=== PATIENT | male | born 1985 | race African-American/Black ===

== ENCOUNTER 2016-10-21 07:19 | Day surgery (SDC) | payer BC, OTHER ==
[~2016-10-21 07:19] MED LIST: Lactated Ringers 1,000 ML IV SCH
[2016-10-21] MEDS ORDERED: Midazolam 1 MG/ML 2 ML SDV IV ONE (08:30)
[2016-10-21] MEDS ORDERED: Propofol 200 MG/20 ML SDV IV ONE (08:30)
--- NOTE | 2016-10-21 08:55 | PCM.OPNOTE ---
- General Post-Op/Procedure Note Date of Surgery/Procedure: 10/21/16 Operative Procedure(s): c scope Findings: internal hemorrhoids Pre Op Diagnosis: bleeding per rectum Post-Op Diagnosis: internal hemorrhoids Anesthesia Technique: ROWENA Primary Surgeon: Mani Oconnor Anesthesia Provider: Linda Cronin Pathology: none Complications: None Condition: Good Free Text/Narrative:: see dictation
--- NOTE | 2016-10-21 10:18 | OR ---
DATE OF OPERATION: 10/21/2016 SURGEON: Mani Oconnor MD PROCEDURE PERFORMED: Colonoscopy. PREOPERATIVE DIAGNOSIS: Bleeding per rectum. POSTOPERATIVE DIAGNOSIS: Internal hemorrhoids. INDICATIONS FOR PROCEDURE: This is a 31-year-old male who is referred with a history of bright red blood per rectum. He was offered and accepted colonoscopy. DESCRIPTION OF OPERATION: After an excellent IV sedation was administered, digital rectal exam was performed. No marked abnormality was noted. The flexible colonoscope was inserted and advanced to the cecum without difficulty. The prep was excellent. The following findings were noted. Ascending colon, unremarkable. Transverse colon, unremarkable. Descending colon, unremarkable. Sigmoid and rectum, unremarkable. On retroflexing the scope, there was evidence of internal hemorrhoids, which appears to be the cause of his bleeding. The colon was deflated, scope was removed. The patient tolerated the procedure well, and was taken to recovery room in good condition. /[id number] /[id number]
[2016-10-21 12:03] VITALS: BP 110/67
== END 2016-10-21 09:30 | disposition home or self-care (01) ==
LOC: FB.SDS 07:19
PROVIDERS: ATTEND Surgery
DX: K64.8 Other hemorrhoids (principal); F32.9 Major depressive disorder, single episode, unspecified; Z79.899 Other long term (current) drug therapy; Z87.891 Personal history of nicotine dependence
CPT/HCPCS: 45378; J2250; J2704; J7120

== ENCOUNTER 2019-03-20 14:31 | Emergency (ER) | payer OTHER ==
--- NOTE | 2019-03-20 14:57 | EDM.PDOC ---
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 He states it was worse when he took a deep breath. He continued to feel short of breath and also felt nausea and lightheadedness. He was also sweating at the time. He apparently had been drinking liquids well prior to this. He was wearing heavy vest and took that vest off but it did not seem to help his breathing or the pain. He reports that the pain which he rated as a 4/10 lasted for 10 or 15 minutes. EMS arrived and noted that he had a pulse rate in the 140s and was wheezing and his O2 saturations were 88-89% on room air. They placed him on an albuterol nebulizer treatment which the patient felt seem to help his breathing somewhat. On the way in here to the emergency department via ambulance, his O2 saturations remained in the 99-100% range and his pulse rate came down into the 100 range. His nausea has resolved but he still ill feels shaky all over and actually has intermittent shakes all over his body. The pain in his chest is basically gone to a 0/10 unless he takes a deep breath and then as a 2/10. He still feels somewhat short of breath and wheezy with a cough. He states he felt completely well and normal prior to all this occurring. He states he's never had this happen before. No arm pain, neck pain or jaw pain. No back pain. There are no other associated signs or symptoms. There are no other modifying factors. Onset: Today (1:15 PM) Duration: Improving Location: Reports: Chest Quality: Reports: Pressure (Squeezing), Sharp (Some sharp component) Severity: Moderate Improves with: Reports: Rest Worsens with: Reports: Breathing Context: Reports: Activity (As above) Treatments SNOW REMOVAL/PLOWING: Reports: Breathing Treatments (By EMS on the way and he received an albuterol nebulizer treatment.) - Related Data Allergies Allergy/AdvReac Type Severity Reaction Status Date / Time No Known Allergies Allergy Verified 10/20/16 13:11 Home Meds: Home Meds NK [No Known Home Meds] 10/21/16 [History] Past Medical History HEENT History: Reports: Impaired Vision Respiratory History: Reports: SOB Gastrointestinal History: Reports: Hemorrhoids (Internal hemorrhoids) Musculoskeletal History: Reports: Back Pain, Chronic Psychiatric History: Reports: Depression, Other (See Below) Other Psychiatric History: SLEEP DISORDER Endocrine/Metabolic History: Reports: Obesity/BMI 30+ Dermatologic History: Reports: Psoriasis - Infectious Disease History Infectious Disease History: Reports: Chicken Pox, Shingles - Past Surgical History GI Surgical History: Reports: Colonoscopy Social & Family History - Family History Cardiac: Reports: CAD, [place] (Mother with IL at age 40.), Stent (Mother has had angioplasty with stent placed.) Endocrine/Metabolic: Reports: Diabetes, type II (Mother developed diabetes mellitus after her IL.) - Tobacco Use Tobacco Use Within Last Twelve Months: Snuff/Dip (1 can per day.) - Alcohol Use Alcohol Use History: No - Living Situation & Occupation 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 Denies: Vomiting : Reports: No Symptoms Musculoskeletal: Reports: No Symptoms Skin: Reports: No Symptoms Neurological: Reports: No Symptoms Hematologic/Lymphatic: Reports: No Symptoms Immunologic: Reports: No Symptoms ED EXAM, GENERAL - Physical Exam Exam: See Below Exam Limited By: No Limitations General Appearance: Alert, WD/WN, Mild Distress Eye Exam: Bilateral Eye: EOMI, Normal Inspection, PERRL Ears: Normal External Exam, Hearing Grossly Normal Ear Exam: Bilateral Ear: Auricle Normal Nose: Normal Inspection, Normal Mucosa, No Blood Throat/Mouth: Normal Inspection, Normal Lips, Normal Teeth, Normal Oropharynx, Normal Voice, No Airway Compromise Head: Atraumatic, Normocephalic Neck: Normal Inspection, Supple, Non-Tender, Full Range of Motion Respiratory/Chest: No Respiratory Distress, No Accessory Muscle Use, Chest Non- Tender, Wheezing (Bilaterally with decreased air movement bilaterally) Cardiovascular: Normal Peripheral Pulses, Regular Rate, Rhythm, No JVD Peripheral Pulses: 2+: Radial (L), Radial (R) GI/Abdominal: Normal Bowel Sounds, Soft, Non-Tender, No Mass Back Exam: Normal Inspection, Full Range of Motion Extremities: Normal Inspection, Normal Range of Motion, Non-Tender, No Pedal Edema, Normal Capillary Refill Neurological: Alert, Oriented, CN II-XII Intact, Normal Cognition, No Motor/ Sensory Deficits Skin Exam: Warm, Dry, Intact, Normal Color, No Rash EKG INTERPRETATION EKG Date: 03/20/19 Time: 14:46 Rhythm: NSR Rate (Beats/Min): 86 [place]: LAD-Left [place] Deviation P-Wave: Present QRS: Other (Inferior Q's and III and aVF and somewhat poor R-wave progression.) ST-T: Other (Nonspecific ST-T changes) QT: Normal Comparison: NA - No Prior EKG Course - Vital Signs Last Recorded V/S: Last Vital Signs Temp 36.0 C 03/20/19 14:31 Pulse 91 03/20/19 14:31 Resp 18 03/20/19 14:31 BP 125/100 H 03/20/19 14:31 Pulse Ox 96 03/20/19 14:31 - Orders/Labs/Meds Orders: Active Orders 24 hr Category Date Time Status EKG Documentation Completion [RC] ASDIRECTED Care 03/20/19 15:18 Active RT Aerosol Therapy [RC] ASDIRECTED Care 03/20/19 15:19 Active Chest 1V Frontal [CR] Stat Exams 03/20/19 15:17 Taken EKG 12 Lead [EK] Routine Ther 03/20/19 15:17 Ordered Labs: Laboratory Tests 03/20/19 03/20/19 03/20/19 Range/Units 15:10 15:10 15:10 WBC 11.3 (4.5-12.0) X10-3/uL RBC 5.27 (4.30-5.75) x10(6)uL Hgb 14.4 (13.5-17.8) g/dL Hct 42.7 (30.0-51.3) % MCV 80.9 (80-96) fL MCH 27.3 L (27.7-33.6) pg MCHC 33.8 (32.2-35.4) g/dL RDW 14.0 (11.5-15.5) % Plt Count 279 (125-369) X10(3)uL MPV 7.6 (7.4-10.4) fL Neut % (Auto) 82.0 (46-82) % Lymph % (Auto) 12.8 L (13-37) % [place] % (Auto) 4.8 (4-12) % Eos % (Auto) 0 L (1.0-5.0) % Baso % (Auto) 0 (0-2) % Neut # (Auto) 9.3 H (1.6-8.3) # Lymph # (Auto) 1.5 (0.6-5.0) # [place] # (Auto) 0.5 (0.0-1.3) # Eos # (Auto) 0.0 (0.0-0.8) # Baso # (Auto) 0.0 (0.0-0.2) # D-Dimer, Quantitative 0.34 (0.0-0.59) mg/LFEU Sodium 140 (135-145) mmol/L Potassium 3.8 (3.5-5.3) mmol/L Chloride 104 (100-110) mmol/L Carbon Dioxide 25 (21-32) mmol/L BUN 17 (7-18) mg/dL Creatinine 1.2 (0.70-1.30) mg/dL Est Cr Clr Drug Dosing TNP Estimated GFR (MDRD) > 60 (>60) BUN/Creatinine Ratio 14.2 (9-20) Glucose 79 L (80-116) mg/dL Calcium 9.4 (8.6-10.2) mg/dL Total Bilirubin 0.4 (0.1-1.3) mg/dL AST 18 (5-25) IU/L ALT 47 H (12-36) U/L Alkaline Phosphatase 87 (56-112) IU/L Troponin I (<0.017-0.056) ng/mL NT-Pro-B Natriuret Pep (<=125) pg/mL Total Protein 7.5 (6.0-8.0) g/dL Albumin 4.1 (3.5-5.2) g/dL Globulin 3.4 g/dL Albumin/Globulin Ratio 1.2 03/20/19 Range/Units 15:10 WBC (4.5-12.0) X10-3/uL RBC (4.30-5.75) x10(6)uL Hgb (13.5-17.8) g/dL Hct (30.0-51.3) % MCV (80-96) fL MCH (27.7-33.6) pg MCHC (32.2-35.4) g/dL RDW (11.5-15.5) % Plt Count (125-369) X10(3)uL MPV (7.4-10.4) fL Neut % (Auto) (46-82) % Lymph % (Auto) (13-37) % [place] % (Auto) (4-12) % Eos % (Auto) (1.0-5.0) % Baso % (Auto) (0-2) % Neut # (Auto) (1.6-8.3) # Lymph # (Auto) (0.6-5.0) # [place] # (Auto) (0.0-1.3) # Eos # (Auto) (0.0-0.8) # Baso # (Auto) (0.0-0.2) # D-Dimer, Quantitative (0.0-0.59) mg/LFEU Sodium (135-145) mmol/L Potassium (3.5-5.3) mmol/L Chloride (100-110) mmol/L Carbon Dioxide (21-32) mmol/L BUN (7-18) mg/dL Creatinine (0.70-1.30) mg/dL Est Cr Clr Drug Dosing Estimated GFR (MDRD) (>60) BUN/Creatinine Ratio (9-20) Glucose (80-116) mg/dL Calcium (8.6-10.2) mg/dL Total Bilirubin (0.1-1.3) mg/dL AST (5-25) IU/L ALT (12-36) U/L Alkaline Phosphatase (56-112) IU/L Troponin I < 0.017 L (<0.017-0.056) ng/mL NT-Pro-B Natriuret Pep 66 (<=125) pg/mL Total Protein (6.0-8.0) g/dL Albumin (3.5-5.2) g/dL Globulin g/dL Albumin/Globulin Ratio Meds: Medications Discontinued Medications Generic Name Dose Route Start Last Admin Trade Name Suraj PRN Reason Stop Dose Admin Albuterol/Ipratropium 3 ml 03/20/19 15:18 03/20/19 15:28 Duoneb 3.0-0.5 Mg/3 Ml NEB 03/20/19 15:19 3 ml ONETIME ONE Administration Aspirin 243 mg 03/20/19 15:18 03/20/19 15:27 Aspirin PO 03/20/19 15:19 243 mg ONETIME ONE Administration - Radiology Interpretation Free Text/Narrative:: Portable chest x-ray shows no acute disease. - Re-Assessments/Exams Free Text/Narrative Re-Assessment/Exam: 03/20/19 16:15: After the nebulizer treatment the patient feels improved and his O2 saturations are maintaining at 100% on room air. He still has some wheezing but he is moving air better. He is pain-free at this point. He still felt somewhat shaky. His initial troponin was negative. His d-dimer was negative. His chest x-ray showed no acute disease. His EKG is nonspecific but it is not normal. I am concerned that this could represent acute coronary syndrome. I called and discussed the patient's case with Dr. Weaver, hospitalist at [facility], and he feels that the patient should be admitted but he feels the patient should be at a facility with cardiology specially services as he may need either cardiac catheterization or a nuclear medicine stress test given the patient's strong family history of heart disease and the patient's history and presentation from today's episode. He feels the patient should be transferred to [facility] in [place] for admission. I discussed this with the patient and the patient would be in agreement with the plan for transfer into [facility] in [place]. 03/20/19 16:30: Attempted to call [facility] but awaiting problem with on system. The patient remains hemodynamically stable and chest pain-free with normal rhythm on the panel monitor. 03/20/19 16:50: Attempted to call [facility] but they were busy and had to attend other patients. The patient remains hemodynamically stable as pain-free. 03/20/19 17:25: Was able to talk to [facility] nurse and they will call me back when they have the hospitalist. 03/20/19 17:45: I discussed the patient's case with Dr. Uribe, hospitalist at [facility] in [place], she has agreed to accept the patient in transfer. The patient will be sent via once to [facility] in [place] for direct admission. The patient remains chest pain-free and hemodynamically stable. Departure - Departure Time of Disposition: 17:50 Disposition: DC/Tfer to [facility] 02 Condition: Fair (Stable) Clinical Impression: Respiratory distress, Wheezing, Chest pain, rule out acute myocardial infarction Chest pain Qualifiers: Chest pain type: unspecified Qualified Code(s): R07.9 - Chest pain, unspecified - Discharge Information Referrals: Jenn Garrett, SCR[employer] WORKER [Primary Care Provider] - - My Orders Last 24 Hours: My Active Orders 03/20/19 15:17 Chest 1V Frontal [CR] Stat EKG 12 Lead [EK] Routine 03/20/19 15:18 EKG Documentation Completion [RC] ASDIRECTED 03/20/19 15:19 RT Aerosol Therapy [RC] ASDIRECTED - Assessment/Plan Last 24 Hours: My Active Orders 03/20/19 15:17 Chest 1V Frontal [CR] Stat EKG 12 Lead [EK] Routine 03/20/19 15:18 EKG Documentation Completion [RC] ASDIRECTED 03/20/19 15:19 RT Aerosol Therapy [RC] ASDIRECTED
[2019-03-20] MEDS ORDERED: Albuterol/Ipratropium 3.0-0.5 MG/3 ML Neb Soln NEB ONE (15:18)
[2019-03-20] MEDS ORDERED: Aspirin 81 MG Tab.Chew PO ONE (15:18)
[2019-03-20] MEDS ORDERED: Sodium Chloride 0.9% 1,000 ML IV SCH (18:15)
[2019-03-20 19:31] VITALS: BP 112/71
--- NOTE | 2019-03-22 09:26 | CR ---
INDICATION: Difficulty breathing, chest pain. CHEST: A single AP upright portable view of the chest revealed an appearance suggesting exogenous obesity. Heart, mediastinum, and bony thorax were unremarkable, except to note a very minimal dextroconvex scoliosis of the mid thoracic spine. Overlying EKG leads are noted. An active infiltrate or effusion was not identified. No free air was noted under the hemidiaphragm leaves. IMPRESSION: No acute process. MTDD
== END 2019-03-20 19:06 ==
LOC: FB.ED 14:31
DX: R07.9 Chest pain, unspecified (principal); R06.2 Wheezing; R06.03 Acute respiratory distress; E66.9 Obesity, unspecified; F17.299 Nicotine dependence, other tobacco product, with unspecified nicotine-induced disorders; Z68.33 Body mass index [BMI] 33.0-33.9, adult
CPT/HCPCS: 36415; 71045; 80053; 83880; 84484; 85025; 85379; 93005; 94640; 96360; 99285-25; A9270-GY; J7030; J7620-GY

== ENCOUNTER 2020-05-13 00:42 | Emergency (ER) | payer OTHER ==
[2020-05-13] MEDS ORDERED: Sodium Chloride 0.9% 10 ML Syringe FLUSH PRN (01:05)
[2020-05-13] MEDS ORDERED: Aspirin 81 MG Tab.Chew PO ONE (01:05)
[2020-05-13] MEDS ORDERED: Metoprolol Succinate 25 MG Tab.ER PO ONE (01:13)
--- NOTE | 2020-05-13 01:21 | EDM.PDOC ---
ED HPI GENERAL MEDICAL PROBLEM - General Chief Complaint: Cardiovascular Problem Stated Complaint: CHEST PAIN Time Seen by Provider: 05/13/20 01:14 Source of Information: Reports: Patient History Limitations: Reports: No Limitations - History of Present Illness INITIAL COMMENTS - FREE TEXT/NARRATIVE: Presents with intermittent substernal chest pain since yesterday morning @0900. The discomfort resolved, but then recurred this evening @2000 while watching TV. Episodes of pain lasts @1 second. Symptoms persist in the ED. Denies SOB. No prior h/o CAD. PMHx includes Asthma, Anxiety and HFrEF (EF 45% in 2019). Denies h/o CAD. FMHx: Mother had MA @42 yo. Patient drinks 3-4 caffeinated sodas per day. Onset Date: 05/12/20 Onset Time: 09:00 Location: Reports: Chest Quality: Reports: Dull Severity: Mild mid chest Pain Score (Numeric/FACES): 2 - Related Data Allergies Allergy/AdvReac Type Severity Reaction Status Date / Time No Known Allergies Allergy Verified 10/20/16 13:11 Home Meds: Home Meds Metoprolol Succinate [Toprol XL] 25 mg PO DAILY #30 tab.er 05/13/20 [Rx] Past Medical History HEENT History: Reports: Impaired Vision Cardiovascular History: Reports: Heart Failure. Denies: CAD, [place] Respiratory History: Reports: Asthma Gastrointestinal History: Reports: Hemorrhoids (Internal hemorrhoids) Other Gastrointestinal History: RECTAL BLEEDING; HX ABDOMINAL PAIN Genitourinary History: Reports: None YOUTH OFFICER History: Reports: None Musculoskeletal History: Reports: Back Pain, Chronic Neurological History: Reports: None Psychiatric History: Reports: Anxiety, Depression, Other (See Below) Other Psychiatric History: SLEEP DISORDER Endocrine/Metabolic History: Reports: Obesity/BMI 30+ Hematologic History: Reports: None Immunologic History: Reports: None Oncologic (Cancer) History: Reports: None Dermatologic History: Reports: Psoriasis - Infectious Disease History Infectious Disease History: Reports: Chicken Pox, Shingles - Past Surgical History GI Surgical History: Reports: Colonoscopy Social & Family History - Family History Cardiac: Reports: CAD, [place] (Mother with MA at age 40.), Stent (Mother has had angioplasty with stent placed.) Endocrine/Metabolic: Reports: Diabetes, type II (Mother developed diabetes mellitus after her MA.) - Tobacco Use Tobacco Use Within Last Twelve Months: Snuff/Dip - Caffeine Use Caffeine Use: Reports: Soda - Alcohol Use Alcohol Use History: Yes Alcohol Use Frequency: Rarely - Recreational Drug Use Recreational Drug Use: No - Living Situation & Occupation 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 ED EXAM, GENERAL - Physical Exam Exam: See Below Exam Limited By: No Limitations General Appearance: Alert, WD/WN, No Apparent Distress Nose: Normal Inspection Throat/Mouth: No Airway Compromise Head: Atraumatic, Normocephalic Neck: Full Range of Motion Respiratory/Chest: No Respiratory Distress, Lungs Clear, Normal Breath Sounds Cardiovascular: Regular Rate, Rhythm, No Murmur Extremities: Normal Inspection Neurological: Alert, Normal Cognition Psychiatric: Normal Affect, Normal Mood Skin Exam: Warm, Dry, Intact #1 Interpretation EKG Date: 05/13/20 Time: 00:50 Rhythm: NSR Rate (Beats/Min): 74 [place]: Normal P-Wave: Present QRS: Normal ST-T: Normal QT: Normal Comparison: No Change (03/20/19) Course - Vital Signs Last Recorded V/S: Last Vital Signs Temp 36.2 C 05/13/20 00:42 Pulse 75 05/13/20 01:28 Resp 20 05/13/20 00:42 BP 161/96 H 05/13/20 01:28 Pulse Ox 100 05/13/20 00:42 - Orders/Labs/Meds Orders: Active Orders 24 hr Category Date Time Status EKG Documentation Completion [RC] ASDIRECTED Care 05/13/20 01:07 Active CXR [Chest 1V Frontal] [CR] Stat Exams 05/13/20 01:04 Taken Sodium Chloride 0.9% [Saline Flush] Med 05/13/20 01:05 Active 10 ml FLUSH ASDIRECTED PRN Saline Lock Insert [OM.PC] Routine Oth 05/13/20 01:05 Ordered EKG 12 Lead [EK] Stat Ther 05/13/20 01:06 Ordered Medication Orders Sodium Chloride (Saline Flush) 10 ml FLUSH ASDIRECTED PRN PRN Reason: Keep Vein Open Last Admin: 05/13/20 01:33 Dose: 10 ml Documented by: DONNIE Labs: Laboratory Tests 05/13/20 05/13/20 05/13/20 Range/Units 01:20 01:20 01:20 WBC 6.7 (4.5-12.0) X10-3/uL RBC 5.27 (4.30-5.75) x10(6)uL Hgb 14.0 (13.5-17.8) g/dL Hct 42.3 (30.0-51.3) % MCV 80.4 (80-96) fL MCH 26.6 L (27.7-33.6) pg MCHC 33.2 (32.2-35.4) g/dL RDW 13.8 (11.5-15.5) % Plt Count 352 (125-369) X10(3)uL MPV 6.7 L (7.4-10.4) fL Neut % (Auto) 60.5 (46-82) % Lymph % (Auto) 29.8 (13-37) % [place] % (Auto) 7.6 (4-12) % Eos % (Auto) 2 (1.0-5.0) % Baso % (Auto) 1 (0-2) % Neut # (Auto) 4.1 (1.6-8.3) # Lymph # (Auto) 2.0 (0.6-5.0) # [place] # (Auto) 0.5 (0.0-1.3) # Eos # (Auto) 0.1 (0.0-0.8) # Baso # (Auto) 0.0 (0.0-0.2) # PT 10.3 (9.0-11.1) sec INR 0.95 L (1.00-1.24) APTT 25.8 (24.4-33.2) SECONDS Sodium 139 (135-145) mmol/L Potassium 3.6 (3.5-5.3) mmol/L Chloride 102 (100-110) mmol/L Carbon Dioxide 26 (21-32) mmol/L BUN 11 (7-18) mg/dL Creatinine 1.2 (0.70-1.30) mg/dL Est Cr Clr Drug Dosing 107.34 mL/min Estimated GFR (MDRD) > 60 (>60) BUN/Creatinine Ratio 9.2 (9-20) Glucose 112 (80-116) mg/dL Calcium 9.1 (8.6-10.2) mg/dL Magnesium (1.8-2.5) mg/dL Total Bilirubin 0.3 (0.1-1.3) mg/dL AST 30 H D (5-25) IU/L ALT 52 H D (12-36) U/L Alkaline Phosphatase 73 (56-112) IU/L Troponin I (4.0-60.3) pg/mL Total Protein 7.2 (6.0-8.0) g/dL Albumin 3.9 (3.5-5.2) g/dL Globulin 3.3 g/dL Albumin/Globulin Ratio 1.2 05/13/20 05/13/20 Range/Units 01:20 01:20 WBC (4.5-12.0) X10-3/uL RBC (4.30-5.75) x10(6)uL Hgb (13.5-17.8) g/dL Hct (30.0-51.3) % MCV (80-96) fL MCH (27.7-33.6) pg MCHC (32.2-35.4) g/dL RDW (11.5-15.5) % Plt Count (125-369) X10(3)uL MPV (7.4-10.4) fL Neut % (Auto) (46-82) % Lymph % (Auto) (13-37) % [place] % (Auto) (4-12) % Eos % (Auto) (1.0-5.0) % Baso % (Auto) (0-2) % Neut # (Auto) (1.6-8.3) # Lymph # (Auto) (0.6-5.0) # [place] # (Auto) (0.0-1.3) # Eos # (Auto) (0.0-0.8) # Baso # (Auto) (0.0-0.2) # PT (9.0-11.1) sec INR (1.00-1.24) APTT (24.4-33.2) SECONDS Sodium (135-145) mmol/L Potassium (3.5-5.3) mmol/L Chloride (100-110) mmol/L Carbon Dioxide (21-32) mmol/L BUN (7-18) mg/dL Creatinine (0.70-1.30) mg/dL Est Cr Clr Drug Dosing mL/min Estimated GFR (MDRD) (>60) BUN/Creatinine Ratio (9-20) Glucose (80-116) mg/dL Calcium (8.6-10.2) mg/dL Magnesium 2.1 (1.8-2.5) mg/dL Total Bilirubin (0.1-1.3) mg/dL AST (5-25) IU/L ALT (12-36) U/L Alkaline Phosphatase (56-112) IU/L Troponin I 5.3 (4.0-60.3) pg/mL Total Protein (6.0-8.0) g/dL Albumin (3.5-5.2) g/dL Globulin g/dL Albumin/Globulin Ratio Meds: Medications Generic Name Dose Route Start Last Admin Trade Name Freq PRN Reason Stop Dose Admin Sodium Chloride 10 ml 05/13/20 01:05 05/13/20 01:33 Saline Flush FLUSH 10 ml ASDIRECTED PRN Administration Keep Vein Open Discontinued Medications Generic Name Dose Route Start Last Admin Trade Name Freq PRN Reason Stop Dose Admin Aspirin 324 mg 05/13/20 01:05 05/13/20 01:00 Aspirin PO 05/13/20 01:06 243 mg ONETIME ONE Administration Metoprolol Succinate 25 mg 05/13/20 01:13 05/13/20 01:28 Toprol Xl PO 05/13/20 01:14 25 mg ONETIME ONE Administration - Radiology Interpretation Free Text/Narrative:: CXR: No acute process. (ED provider interpretation) - Re-Assessments/Exams Free Text/Narrative Re-Assessment/Exam: 05/13/20 01:31 Chest discomfort coincides with PVCs seen on the cardiac rehabilitation specialist. Departure - Departure Time of Disposition: 02:00 Disposition: Home, Self-Care 01 Condition: Good Clinical Impression: Frequent PVCs Prescriptions: Metoprolol Succinate [Toprol XL] 25 mg PO DAILY #30 tab.er Instructions: Premature Ventricular Contraction Referrals: Jenn Garrett NP [Primary Care Provider] - 3 Days Forms: ED Department Discharge Additional Instructions: Fill the prescription for Toprol at [facility] and take as directed. Stop the medication if your Asthma worsens. Decrease caffeine intake. Follow up with your Primary Physician in 2-3 days. Return to the ER if symptoms worsen. Sepsis Event Note (ED) - Evaluation Sepsis Screening Result: No Definite Risk - Focused Exam Vital Signs: Vital Signs Temp Pulse Pulse Resp BP BP Pulse Ox 05/13/20 01:28 75 161/96 H 05/13/20 00:42 36.2 C 77 20 167/97 H 100 - My Orders Last 24 Hours: My Active Orders 05/13/20 01:04 CXR [Chest 1V Frontal] [CR] Stat 05/13/20 01:05 Sodium Chloride 0.9% [Saline Flush] 10 ml FLUSH ASDIRECTED PRN Saline Lock Insert [OM.PC] Routine 05/13/20 01:06 EKG 12 Lead [EK] Stat 05/13/20 01:07 EKG Documentation Completion [RC] ASDIRECTED - Assessment/Plan Last 24 Hours: My Active Orders 05/13/20 01:04 CXR [Chest 1V Frontal] [CR] Stat 05/13/20 01:05 Sodium Chloride 0.9% [Saline Flush] 10 ml FLUSH ASDIRECTED PRN Saline Lock Insert [OM.PC] Routine 05/13/20 01:06 EKG 12 Lead [EK] Stat 05/13/20 01:07 EKG Documentation Completion [RC] ASDIRECTED
[2020-05-13 01:29] VITALS: PULSE 75
[2020-05-13 02:24] VITALS: BP 150/89
--- NOTE | 2020-05-13 10:31 | CR ---
INDICATION: Chest pain. CHEST, ONE VIEW: An AP upright portable view of the chest was obtained 05/13/20 and compared with 03/20/19. There is evidence of exogenous obesity. Overlying EKG leads are noted. The heart is normal in size and shape. Mediastinum is unremarkable. An active infiltrate or effusion was not identified. IMPRESSION: 1. No acute process. 2. Exogenous obesity. MTDD
== END 2020-05-13 02:10 | disposition home or self-care (01) ==
LOC: FB.ED 00:42
DX: I49.3 Ventricular premature depolarization (principal); I50.9 Heart failure, unspecified; J45.909 Unspecified asthma, uncomplicated; E66.9 Obesity, unspecified; Z79.899 Other long term (current) drug therapy; Z68.41 Body mass index [BMI] 40.0-44.9, adult
CPT/HCPCS: 36415; 71045; 80053; 83735; 84484; 85025; 85610; 85730; 93005; 99285; A9270

== ENCOUNTER 2021-08-04 13:39 | Emergency (ER) | payer BC, OTHER ==
[2021-08-04] MEDS ORDERED: Albuterol/Ipratropium 3.0-0.5 MG/3 ML Neb Soln NEB ONE (14:28)
[2021-08-04] MEDS ORDERED: Acetaminophen 500 MG Tab PO ONE (15:14)
[2021-08-04] MEDS ORDERED: Ibuprofen 800 MG Tab PO ONE (15:15)
[2021-08-04] MEDS ORDERED: Sodium Chloride 0.9% 10 ML Syringe FLUSH PRN (15:59)
[2021-08-04] MEDS ORDERED: Iopamidol 755 Mg/ML 100 ML Bottle IV ONE ×2 (16:09→17:13)
[2021-08-04] MEDS ORDERED: Sodium Chloride 0.9% 1,000 ML IV SCH (16:30)
[2021-08-04 19:24] VITALS: BP 128/81; PULSE 85
== END 2021-08-04 18:28 | disposition home or self-care (01) ==
LOC: FB.ED 13:39
DX: U07.1 COVID-19 (principal); J12.82 Pneumonia due to coronavirus disease 2019; E66.9 Obesity, unspecified; Z68.41 Body mass index [BMI] 40.0-44.9, adult; Z72.0 Tobacco use
CPT/HCPCS: 36415; 71045; 71275; 80053; 83880; 84484; 85025; 85379; 94640; 99285-25; A9270-GY; J7030; J7620-GY; Q9967

== ENCOUNTER 2023-07-23 23:06 | Emergency (ER) | payer BC, OTHER ==
[2023-07-23] MEDS ORDERED: Insulin Glargine,Human Rec. Analog 100 Units/ML 3 ML Pen SUBCUT ONE (23:07)
[2023-07-23] MEDS ORDERED: Insulin Lispro 100 Unit/ML 3 ML KwikPen SUBCUT ONE ×2 (23:07→23:25)
[2023-07-23] MEDS ORDERED: 50% Dextrose in Water 50 ML Syringe IVPUSH PRN (23:25)
[2023-07-23] MEDS ORDERED: Sodium Chloride 0.9% 10 ML Syringe FLUSH PRN (23:25)
[2023-07-23] MEDS ORDERED: Glucagon,Human Recombinant 1 MG Vial IM PRN (23:25)
[2023-07-23] MEDS ORDERED: Sodium Chloride 0.9% 1,000 ML IV SCH (23:30)
[2023-07-23 23:41] VITALS: BP 149/93
[2023-07-23 23:44] LABS: BASOPHILS ABSOLUTE AUTO 0.1 x10-3/uL (0.0-0.3); BASOPHILS PERCENT AUTO 0.8 % (0.3-3.8); EOSINOPHILS ABSOLUTE AUTO 0.1 x10-3/uL (0.0-0.6); EOSINOPHILS PERCENT AUTO 1.9 % (0.1-6.8); HEMATOCRIT 40.5 % (38.3-50.1); HEMOGLOBIN 13.7 g/dL (12.9-17.7); LYMPHOCYTES ABSOLUTE AUTO 2.7 x10-3/uL (0.5-4.5); LYMPHOCYTES PERCENT AUTO 41.2 % (15.8-45.3); MEAN CORPUSCULAR HEMOGLOBIN 26.9 pg (27.0-33.3); MEAN CORPUSCULAR HGB CONC 33.9 g/dL (28.7-35.3); MEAN CORPUSCULAR VOLUME 79.5 fL (80.8-98.7); MEAN PLATELET VOLUME 7.5 fL (6.7-11.0); MONOCYTES ABSOLUTE AUTO 0.5 x10-3/uL (0.0-1.2); MONOCYTES PERCENT AUTO 7.3 % (5.5-15.2); NEUTROPHILS ABSOLUTE AUTO 3.2 x10-3/uL (1.7-6.9); NEUTROPHILS PERCENT AUTO 48.8 % (40.3-71.8); PLATELET COUNT,PLT 297 x10(3)uL (117-477); RED BLOOD CELL COUNT 5.09 x10(6)uL (3.90-5.90); WHITE BLOOD CELL COUNT,WBC 6.5 x10-3/uL (3.2-10.1)
[2023-07-23 23:58] LABS: BLOOD UREA NITROGEN,BUN 15 mg/dL (7-18); BUN/CREATININE RATIO 11.5 (9-20); CARBON DIOXIDE,CO2 26 mmol/L (21-32); CHLORIDE,CL 94 mmol/L (100-110); CREATININE 1.3 mg/dL (0.70-1.30); EST CRCL DRUG DOSING (CG) 97.37 mL/min; ESTIMATED GFR 73 mL/min (>60); SODIUM,NA 130 mmol/L (135-145)
[2023-07-23 23:59] LABS: A/G RATIO 1.2; ALANINE AMINOTRANSFERASE,ALT 59 U/L (12-36); ALBUMIN 3.9 g/dL (3.5-5.2); ALKALINE PHOSPHATASE 93 IU/L (56-112); ASPARTATE AMNIOTRANSFERASE,AST 55 IU/L (5-25); BILIRUBIN TOTAL 0.4 mg/dL (0.1-1.3); CALCIUM 9.2 mg/dL (8.6-10.2); PROTEIN TOTAL,TP 7.2 g/dL (6.0-8.0)
[2023-07-24 00:01] LABS: GLUCOSE RANDOM 608 mg/dL (80-116)
[2023-07-24] MEDS ORDERED: Glucagon,Human Recombinant 1 MG Vial IM PRN (00:56)
[2023-07-24] MEDS ORDERED: Insulin Glargine,Human Rec. Analog 100 Units/ML 3 ML Pen SUBCUT STA (00:56)
[2023-07-24] MEDS ORDERED: 50% Dextrose in Water 50 ML Syringe IVPUSH PRN (00:56)
[2023-07-24 01:28] VITALS: PULSE 77
== END 2023-07-24 01:25 | disposition home or self-care (01) ==
LOC: FB.ED 23:06
DX: E11.65 Type 2 diabetes mellitus with hyperglycemia (principal); I50.9 Heart failure, unspecified; J45.909 Unspecified asthma, uncomplicated; F17.210 Nicotine dependence, cigarettes, uncomplicated; Z79.899 Other long term (current) drug therapy
CPT/HCPCS: 36415; 80053; 82947; 85025; 96360; 99283-25; J1815; J1815-GY; J7030